=== PATIENT | female | born 1975 | race Caucasian/White ===

== ENCOUNTER 2017-04-11 05:13 | Emergency (ER) | payer MEDICAID, OTHER ==
[~2017-04-11] VITALS: Ht 154.9 cm; Wt 62.7 kg
[2017-04-11 05:21] VITALS: BP 122/78; PULSE 93; RESP 16; TEMP 98.8; O2SAT 96
[2017-04-11] MEDS ORDERED: LISD60 PO (05:27)
[2017-04-11] MEDS ORDERED: EFFE150C PO (05:27)
[2017-04-11] MEDS ORDERED: BUPR150CR PO (05:27)
[2017-04-11] MEDS ORDERED: TRAZ50TA12 PO (05:27)
--- NOTE | 2017-04-11 05:35 | PD ---
HPI Chief Complaint: Psychiatric Symptoms Time Seen by Provider: 05:29 Travel History International Travel<30 days: No Contact w/Intl Traveler<30days: No Traveled to known affect area: No History of Present Illness HPI Patient is a 42-year-old female presenting to emergency Department under White act for suicidal ideations. Per the White act report patient made suicidal ideations that she was going to go into the ocean to kill herself. Patient is currently denying any suicidal or homicidal ideations. She states that she has had a history of depression, it's been worse recently due to relationship issues. She reports being homeless currently due to a failed relationship. She denies any illicit drug use. She reports a history of depression, ADHD, anxiety. Patient has no physical complaints at this time. [facility] Past Medical History ADHD: Yes Anxiety: Yes Depression: Yes Insomnia: Yes Social History Alcohol Use: Yes Tobacco Use: No Substance Use: No Allergies-Medications (Allergen,Severity, Reaction): Coded Allergies: Morphine (Verified Allergy, Severe, 04/11/17) ALL OVER ITCHINESS Amoxicillin (Verified Allergy, Intermediate, 04/11/17) BLOTCHES Latex (Verified Allergy, Intermediate, 04/11/17) RASH Reported Meds & Prescriptions Reported Meds & Active Scripts Active Reported Trazodone (Trazodone HCl) 50 Mg Tab 50 Mg PO HS Vyvanse (Lisdexamfetamine Dimesylate) 60 Mg Cap 60 Mg PO DAILY Effexor XR 24 HR (Venlafaxine HCl) 150 Mg Cap 150 Mg PO DAILY Wellbutrin SR 12 HR (Bupropion HCl) 150 Mg Tab 150 Mg PO Q12HR Review of Systems Except as stated in HPI: all other systems reviewed are Neg Psychiatric: Positive: Depression, Suicidal Ideations Physical Exam Narrative GENERAL: Well-developed, well-nourished, alert female. Appears slightly disheveled. SKIN: Warm and dry. HEAD: Atraumatic. Normocephalic. EYES: Pupils equal and round. No scleral icterus. No injection or drainage. ENT: No nasal bleeding or discharge. Mucous membranes pink and moist. NECK: Trachea midline. No JVD. CARDIOVASCULAR: Regular rate and rhythm. RESPIRATORY: No accessory muscle use. Clear to auscultation. Breath sounds equal bilaterally. GASTROINTESTINAL: Abdomen soft, non-tender, nondistended. Hepatic and splenic margins not palpable. MUSCULOSKELETAL: Extremities without clubbing, cyanosis, or edema. No obvious deformities. NEUROLOGICAL: Awake and alert. No obvious cranial nerve deficits. Motor grossly within normal limits. Five out of 5 muscle strength in the arms and legs. Normal speech. PSYCHIATRIC: Depressed mood and affect; insight and judgment normal. Data Data Last Documented VS Vital Signs Date Time Temp Pulse Resp B/P Pulse Ox O2 Delivery O2 Flow Rate FiO2 04/11/17 05:21 98.8 93 16 122/78 96 Orders Complete Blood Count With Diff (04/11/17 05:25) Comprehensive Metabolic Panel (04/11/17 05:25) Thyroid Stimulating Hormone (04/11/17 05:25) Urinalysis - C+S If Indicated (04/11/17 05:25) Ed Urine Pregnancytest Poc (04/11/17 05:25) Psych Screen (04/11/17 05:25) Drug Screen, Random Urine (04/11/17 05:25) Alcohol (Ethanol) (04/11/17 05:25) Salicylates (Aspirin) (04/11/17 05:25) Tylenol (Acetaminophen) (04/11/17 05:25) Diet Regular Basic (04/11/17 Breakfast) Acetaminophen (Tylenol) (04/11/17 06:00) Labs Laboratory Tests Test 04/11/17 05:40 White Blood Count 10.1 TH/MM3 Red Blood Count 4.50 MIL/MM3 Hemoglobin 14.7 GM/DL Hematocrit 41.2 % Mean Corpuscular Volume 91.7 FL Mean Corpuscular Hemoglobin 32.7 PG Mean Corpuscular Hemoglobin 35.7 % Concent Red Cell Distribution Width 12.8 % Platelet Count 262 TH/MM3 Mean Platelet Volume 9.7 FL Neutrophils (%) (Auto) 55.6 % Lymphocytes (%) (Auto) 32.1 % Monocytes (%) (Auto) 8.5 % Eosinophils (%) (Auto) 3.2 % Basophils (%) (Auto) 0.6 % Neutrophils # (Auto) 5.6 TH/MM3 Lymphocytes # (Auto) 3.2 TH/MM3 Monocytes # (Auto) 0.9 TH/MM3 Eosinophils # (Auto) 0.3 TH/MM3 Basophils # (Auto) 0.1 TH/MM3 CBC Comment DIFF FINAL Differential Comment Urine Color LIGHT-YELLOW Urine Turbidity CLEAR Urine pH 5.0 Urine Specific [place] 1.004 Urine Protein NEG mg/dL Urine Glucose (UA) NEG mg/dL Urine Ketones NEG mg/dL Urine Occult Blood NEG Urine Nitrite NEG Urine Bilirubin NEG Urine Urobilinogen LESS THAN 2.0 MG/DL Urine Leukocyte Esterase NEG Urine RBC 1 /hpf Urine WBC 2 /hpf Urine Squamous Epithelial 1 /hpf Cells Urine Bacteria OCC /hpf Urine Hyaline Casts 1 /lpf Urine Mucus FEW /lpf Microscopic Urinalysis Comment CULT NOT INDICATED Sodium Level 142 MEQ/L Potassium Level 3.7 MEQ/L Chloride Level 106 MEQ/L Carbon Dioxide Level 28.1 MEQ/L Anion Gap 8 MEQ/L Blood Urea Nitrogen 7 MG/DL Creatinine 0.72 MG/DL Estimat Glomerular Filtration 88 ML/MIN Rate Random Glucose 94 MG/DL Calcium Level 8.6 MG/DL Total Bilirubin 0.3 MG/DL Aspartate Amino Transf 22 U/L (AST/SGOT) Alanine Aminotransferase 30 U/L (ALT/SGPT) Alkaline Phosphatase 77 U/L Total Protein 7.1 GM/DL Albumin 4.1 GM/DL Thyroid Stimulating Hormone 2.720 uIU/ML 3rd Gen Salicylates Level LESS THAN 1.7 MG/DL Urine Opiates Screen NEG Acetaminophen Level LESS THAN 2.0 MCG/ML Urine Barbiturates Screen NEG Urine Amphetamines Screen POS Urine Benzodiazepines Screen NEG Urine Cocaine Screen NEG Urine Cannabinoids Screen NEG Ethyl Alcohol Level 202 MG/DL [facility] Medical Decision Making Medical Screen Exam Complete: Yes Emergency Medical Condition: Yes Interpretation(s) Vital Signs Date Time Temp Pulse Resp B/P Pulse Ox O2 Delivery O2 Flow Rate FiO2 04/11/17 05:21 98.8 93 16 122/78 96 Differential Diagnosis Depression versus suicidal ideation versus mood disorder versus psychosis versus intoxication versus other Narrative Course Patient is a 42-year-old female presenting under White act due to suicidal ideations. Patient reports a long-standing history of depression. She is resting comfortably, her vital signs are stable. Patient has been cooperative. Mental health screening discussed with the patient. Psychiatric screen ordered. CBC, chemistry, urinalysis, TSH reviewed and no acute findings were identified. Urine drug screen is positive for amphetamines, patient has a prescription for Vyvanse for ADHD. Alcohol level is 202 Acetaminophen and salicylate level are negative Patient was given a sandwich and something to drink. Patient has been cooperative, her vital signs are stable. Patient is medically cleared for psychiatric evaluation at this time. Diagnosis Primary Impression: Medical clearance for psychiatric admission Additional Impressions: Alcohol intoxication Qualified Code: F10.920 - Alcohol intoxication, uncomplicated Suicidal ideations Condition: Stable Milagros Snow Apr 11, 2017 05:35
[2017-04-11] MEDS ORDERED: ACETAMINOPHEN 325 MG TAB PO ONE (06:00)
[2017-04-11 06:02] LABS: AMPHETAMINE, URINE POS (NEG); BACTERIA, URINE OCC /hpf; BARBITURATES, URINE NEG (NEG); BLOOD, URINE NEG (NEG); COCAINE, URINE NEG (NEG); COMMENT (UR) CULT NOT INDICATED; CULTURE IF INDICATED CULT NOT INDICATED; GLUCOSE,URINE NEG (NEG); HYALINE CAST, URINE 1 /lpf (RARE); KETONE, URINE NEG (NEG); MUCUS URINE FEW /lpf (OCC); NITRITE,URINE NEG (NEG); SQUAMOUS EPITHELIAL CELL URINE 1 /hpf (0-5); URINE COLOR LIGHT-YELLOW (YELLW/STRAW)
[2017-04-11 06:03] LABS: AUTOMATED NEUTROPHIL # 5.6 TH/MM3 (1.8-7.7); BASOPHIL # 0.1 TH/MM3 (0-0.2); BASOPHIL % 0.6 % (0.0-2.0); EOSINOPHIL # 0.3 TH/MM3 (0-0.4); EOSINOPHIL % 3.2 % (0.0-4.0); HEMATOCRIT 41.2 % (35.0-46.0); HEMO FLAGS DIFF FINAL; LYMPH % 32.1 % (9.0-44.0); LYMPHOCYTE # 3.2 TH/MM3 (1.0-4.8); MEAN CELL VOLUME 91.7 FL (80.0-100.0); MEAN CORPUSCULAR HEMOGLOBIN 32.7 PG (27.0-34.0); MEAN CORPUSCULAR HGB CONC 35.7 % (32.0-36.0); MONO % 8.5 % (0.0-8.0); NEUT % 55.6 % (16.0-70.0); PLATELET COUNT 262 TH/MM3 (150-450); RED CELL DISTRIBUTION WIDTH 12.8 % (11.6-17.2); WHITE BLOOD COUNT 10.1 TH/MM3 (4.0-11.0)
[2017-04-11 06:08] LABS: ANION GAP 8 MEQ/L (5-15); AST (GOT) 22 U/L (15-37); BICARBONATE 28.1 MEQ/L (21.0-32.0); BLOOD UREA NITROGEN 7 MG/DL (7-18); CHLORIDE 106 MEQ/L (98-107); GLOMERULAR FILTRATION RATE 88 ML/MIN (>89); POTASSIUM 3.7 MEQ/L (3.5-5.1); SODIUM (NA) 142 MEQ/L (136-145)
[2017-04-11 06:09] LABS: ALT (GPT) 30 U/L (10-53)
[2017-04-11 06:19] LABS: ACETAMINOPHEN LESS THAN 2.0 MCG/ML (10.0-30.0); ALKALINE PHOSPHATASE 77 U/L (45-117); TOTAL BILIRUBIN ADULT 0.3 MG/DL (0.2-1.0)
[2017-04-11 09:50] VITALS: BP 110/62; PULSE 84; RESP 18; TEMP 98.6; O2SAT 95
[2017-04-11 14:04] VITALS: BP 110/62; PULSE 84; RESP 18; O2SAT 98
--- NOTE | 2017-04-11 14:12 | PD ---
History of Present Illness Chief Complaint: Psychiatric Symptoms Time Seen by Provider: 13:45 Travel History International Travel<30 Days: No Contact w/Intl Traveler<30days: No Known affected area: No Legal Status Legal Status: White Act White Act Signed By: Rody Mercado History of Present Illness: History of Present Illness HPI Patient is a 42-year-old female with history of depression presenting to emergency Department under White act initiated by [employer]. Per the White act report patient made suicidal ideations that she was going to go into the ocean to kill herself. Patient did not make any attempt at harming herself. EMR is reviewed. [place] [facility] [place] Current toxicology is positive for amphetamines which are prescribed to her. BAL is 202. Patient is seen. record is reviewed. She is clinically sober. Alert and oriented female. Appropriate hygiene and grooming. Speech is clear, logical goal directed. No hallucinations, no delusions and no paranoia. There is no significant depressive symptomatology. No suicidal or homicidal ideation, intent or plan. No rachid. She reports medication compliance. relates that she is having relationship problems and came to [facility] to send the night away from her boyfriend. She had plans to rent a room and then go to work this afternoon. She denies making any suicidal statements. She is future oriented and has plans on saving money in order to get her own apartment and be able to have her 3 children with her. [facility] Past Medical History ADHD: Yes Anxiety: Yes Depression: Yes Insomnia: Yes ?: Unknown LMP: 03/16/2017 Psychiatric History Psychiatric History Hx Psychiatric Treatment: CURRENTLY BEING TREATED FOR DEPRESSION AND ADD BY A DOCTOR IN [place] AT [facility] Reports one previous suicide attempt by overdose but zainain she immediately called her family after she took the pills. History of Inpatient Treatment: No Guns or firearms in home: No Social History female. Was living with her boyfriend. 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 has 3 children ages 17 years, 15 and 12 years old. Hx Alcohol Use: Yes (OCCASIONALY ) Hx Tobacco Use: No Hx Substance Use: Yes Substance Use Type: Alcohol Hx of Substance Use Treatment: No Family Psychiatric History Negative Allergies-Medications (Allergen,Severity, Reaction): Coded Allergies: Morphine (Verified Allergy, Severe, 04/11/17) ALL OVER ITCHINESS Amoxicillin (Verified Allergy, Intermediate, 04/11/17) BLOTCHES Latex (Verified Allergy, Intermediate, 04/11/17) RASH Reported Meds & Prescriptions Reported Meds & Active Scripts Active Reported Trazodone (Trazodone HCl) 50 Mg Tab 50 Mg PO HS Vyvanse (Lisdexamfetamine Dimesylate) 60 Mg Cap 60 Mg PO DAILY Effexor XR 24 HR (Venlafaxine HCl) 150 Mg Cap 150 Mg PO DAILY Wellbutrin SR 12 HR (Bupropion HCl) 150 Mg Tab 150 Mg PO Q12HR Review of Systems Except as stated in HPI: all other systems reviewed are Neg Exam Alert: Yes [place]: Person (ox4) Mood: Calm Affect: Appropriate Speech: Clear, Logical Eye Contact: Normal Memory Intact: Comment (not impaired) Hallucinations: Other (Negative) Delusions: No Delusion Type: Other (negative) Suicidal: Ideation (denies any) Homicidal: Ideation (Denies any) Insight/Judgement Fair. Not impaired. MDM Medical Decision Making Medical Record Reviewed: Yes Assessment/Plan 42 year old female under a BA for alleged suicidal ideation. the patient tells me that she is involved in a relationship and is trying to spend some time away from the person and that is why she came to [facility]. The patient does not present any acute psychiatric symptoms and does not present any suicidality. She is future oriented with adequate protective factors in place. Does not meet BA criteria Will lift BA. Follow up with [facility]. Orders Complete Blood Count With Diff (04/11/17 05:25) Comprehensive Metabolic Panel (04/11/17 05:25) Thyroid Stimulating Hormone (04/11/17 05:25) Urinalysis - C+S If Indicated (04/11/17 05:25) Ed Urine Pregnancytest Poc (04/11/17 05:25) Psych Screen (04/11/17 05:25) Drug Screen, Random Urine (04/11/17 05:25) Alcohol (Ethanol) (04/11/17 05:25) Salicylates (Aspirin) (04/11/17 05:25) Tylenol (Acetaminophen) (04/11/17 05:25) Diet Regular Basic (04/11/17 Breakfast) Acetaminophen (Tylenol) (04/11/17 06:00) Diet Regular Basic (04/11/17 Lunch) Diet Regular Basic (04/11/17 Dinner) Results Vital Signs Date Time Temp Pulse Resp B/P Pulse Ox O2 Delivery O2 Flow Rate FiO2 04/11/17 14:04 84 18 110/62 98 Room Air 04/11/17 09:50 98.6 84 18 110/62 95 Room Air 04/11/17 05:21 98.8 93 16 122/78 96 Laboratory Tests Test 04/11/17 05:40 White Blood Count 10.1 Red Blood Count 4.50 Hemoglobin 14.7 Hematocrit 41.2 Mean Corpuscular Volume 91.7 Mean Corpuscular Hemoglobin 32.7 Mean Corpuscular Hemoglobin 35.7 Concent Red Cell Distribution Width 12.8 Platelet Count 262 Mean Platelet Volume 9.7 Neutrophils (%) (Auto) 55.6 Lymphocytes (%) (Auto) 32.1 Monocytes (%) (Auto) 8.5 Eosinophils (%) (Auto) 3.2 Basophils (%) (Auto) 0.6 Neutrophils # (Auto) 5.6 Lymphocytes # (Auto) 3.2 Monocytes # (Auto) 0.9 Eosinophils # (Auto) 0.3 Basophils # (Auto) 0.1 CBC Comment DIFF FINAL Differential Comment Urine Color LIGHT-YELLOW Urine Turbidity CLEAR Urine pH 5.0 Urine Specific [place] 1.004 Urine Protein NEG Urine Glucose (UA) NEG Urine Ketones NEG Urine Occult Blood NEG Urine Nitrite NEG Urine Bilirubin NEG Urine Urobilinogen LESS THAN 2.0 Urine Leukocyte Esterase NEG Urine RBC 1 Urine WBC 2 Urine Squamous Epithelial 1 Cells Urine Bacteria OCC Urine Hyaline Casts 1 Urine Mucus FEW Microscopic Urinalysis Comment CULT NOT INDICATED Sodium Level 142 Potassium Level 3.7 Chloride Level 106 Carbon Dioxide Level 28.1 Anion Gap 8 Blood Urea Nitrogen 7 Creatinine 0.72 Estimat Glomerular Filtration 88 Rate Random Glucose 94 Calcium Level 8.6 Total Bilirubin 0.3 Aspartate Amino Transf 22 (AST/SGOT) Alanine Aminotransferase 30 (ALT/SGPT) Alkaline Phosphatase 77 Total Protein 7.1 Albumin 4.1 Thyroid Stimulating Hormone 2.720 3rd Gen Salicylates Level LESS THAN 1.7 Urine Opiates Screen NEG Acetaminophen Level LESS THAN 2.0 Urine Barbiturates Screen NEG Urine Amphetamines Screen POS Urine Benzodiazepines Screen NEG Urine Cocaine Screen NEG Urine Cannabinoids Screen NEG Ethyl Alcohol Level 202 Diagnosis Primary Impression: Alcohol intoxication Additional Impressions: Suicidal ideations Adjustment disorder with mixed anxiety and depressed mood Psychiatrically Cleared: Yes Med/ Other Pt Specific Info: No Change to Meds Disposition: 01 DISCHARGE HOME Condition: Stable Problem Qualifiers Primary Impression: Alcohol intoxication Qualified Code: F10.920 - Alcohol intoxication, uncomplicated Eva Francois [facility] Apr 11, 2017 14:12
== END 2017-04-11 14:33 | disposition home or self-care (01) ==
LOC: NEPD 05:13 → NEPJ 14:33
DX: F10.129 Alcohol abuse with intoxication, unspecified (principal); Y90.7 Blood alcohol level of 200-239 mg/100 ml; R45.851 Suicidal ideations; F32.9 Major depressive disorder, single episode, unspecified; Z59.0 Homelessness; Z79.899 Other long term (current) drug therapy
CPT/HCPCS: 80053; 80307; 81001; 84443; 85025; 99284